=== PATIENT | female | born 1960 | race African-American/Black ===

== ENCOUNTER 2019-03-30 09:26 | Emergency (ER) | payer MEDICARE, OTHER ==
[~2019-03-30] VITALS: Ht 160 cm; Wt 64.0 kg
[~2019-03-30 09:26] MED LIST: LEVE750T35; LEVO125T
[2019-03-30 10:20] LABS: EOSINOPHILS % 0.6 % (0.0-5.0); HEMOGLOBIN. 14.6 g/dL (12.0-16.0); LYMPHOCYTES % 21.8 % (20.0-50.0); MEAN CORPUSCULAR HEMOGLOBIN 29.7 pg (28.0-32.0); MEAN CORPUSCULAR VOLUME 87.8 fL (81.0-99.0); MEAN PLATELET VOLUME 8.7 fl (7.4-10.4); MONOCYTES % 4.7 % (2.0-8.0); NEUTROPHILS % 71.9 % (40.0-76.0); PLATELET 355 x1000/uL (130-400); RED CELL DISTRIBUTION WIDTH 13.2 % (11.6-14.6)
[2019-03-30 10:27] LABS: CHLORIDE 106 mEq/L (98-107)
[2019-03-30] MEDS: POTASSIUM CHLORIDE 20MEQ TABLET SR PO ONE (11:12)
[2019-03-30] MEDS: ALPRAZOLAM 0.5 MG TABLET PO ONE (11:12)
[2019-03-30 14:22] VITALS: BP 140/80
== END 2019-03-30 14:24 | disposition home or self-care (01) ==
LOC: ER 09:26
DX: F41.9 Anxiety disorder, unspecified (principal); F43.0 Acute stress reaction; F32.9 Major depressive disorder, single episode, unspecified; E87.6 Hypokalemia; F17.200 Nicotine dependence, unspecified, uncomplicated; Z98.890 Other specified postprocedural states; Z79.899 Other long term (current) drug therapy
CPT/HCPCS: 36415; 80048; 99284

== ENCOUNTER 2020-01-21 19:26 | Inpatient (IN) | payer OTHER ==
[~2020-01-21] VITALS: Ht 160 cm; Wt 56.2 kg
[2020-01-21] MEDS ORDERED: SODIUM CHLORIDE 0.9% 1,000 ML IV ONE (19:46)
[2020-01-21] MEDS ORDERED: CEFTRIAXONE 1 G PREMIX 50 ML IV ONE (20:00)
[2020-01-21 21:18] LABS: BASOPHILS % 0.7 % (0.0-2.0); HEMATOCRIT. 35.2 % (36.0-48.0); HEMOGLOBIN. 12.3 g/dL (12.0-16.0); LYMPHOCYTES % 37.3 % (20.0-50.0); MEAN CORPUSCULAR HEMOGLOBIN 31.8 pg (28.0-32.0); MEAN PLATELET VOLUME 8.2 fl (7.4-10.4); MONOCYTES % 8.4 % (2.0-8.0); NEUTROPHILS % 51.6 % (40.0-76.0); PLATELET 273 x1000/uL (130-400); RED BLOOD CELL COUNT 3.87 mill/uL (4.2-5.4); RED CELL DISTRIBUTION WIDTH 13.7 % (11.6-14.6)
[2020-01-21 21:27] LABS: CHLORIDE 111 mEq/L (98-107)
[2020-01-21 21:33] LABS: ETHANOL BLOOD < 10 mg/dL
[2020-01-21 21:36] LABS: LDL CHOLESTEROL 110 mg/dL (5-100); PROTHROMBIN TIME 10.6 sec (9.6-11.0)
[2020-01-21 22:48] LABS: CLARITY URINE CLEAR (CLEAR); COLOR URINE YELLOW (YELLOW); KETONES URINE NEGATIVE (NEGATIVE); LEUKOCYTE ESTERASE URINE 1+ (NEGATIVE); NITRITE URINE NEGATIVE (NEGATIVE); OCCULT BLOOD URINE NEGATIVE (NEGATIVE); PH URINE 5.5 (4.5-8.0); PROTEIN URINE NEGATIVE (NEGATIVE); SPECIFIC GRAVITY URINE 1.014 (1.005-1.030); UROBILINOGEN URINE 0.2 E.U./dL (0.2-1.0)
[2020-01-21 22:58] LABS: *AMPHETAMINES SCREEN URINE NEGATIVE (NEGATIVE); *BARBITURATES SCREEN URINE NEGATIVE (NEGATIVE)
[2020-01-21 22:59] LABS: *BENZODIAZEPINES SCREEN URINE PRESUMTIVE POSITIVE (NEGATIVE); *COCAINE SCREEN URINE NEGATIVE (NEGATIVE); CANNABINOID URINE SCREEN NEGATIVE (NEGATIVE); METHADONE URINE SCREEN NEGATIVE (NEGATIVE); OPIATES URINE SCREEN NEGATIVE (NEGATIVE); PHENCYCLIDINE URINE SCREEN NEGATIVE (NEGATIVE)
[2020-01-21] MEDS ORDERED: ONDANSETRON HCL 4MG/2ML INJ IV ONE (23:15)
[2020-01-21] MEDS ORDERED: MORPHINE SULFATE 4 MG/ML CPJ (NOT FOR IM USE) IV ONE (23:15)
[2020-01-22] MEDS ORDERED: IOHEXOL-12MG/ML 500 ML ORAL.CONC PO ONE (04:03)
[2020-01-22] MEDS ORDERED: IOHEXOL-300 100 ML BOTTLE ONE (04:04)
[2020-01-22 05:15] VITALS: BP_SYST 115; BP_SYST 162; BP_DIAS 91
[2020-01-22] MEDS ORDERED: POTASSIUM CHLORIDE 20MEQ TABLET SR PO NR ×2 (06:00→13:00)
[2020-01-22] MEDS ORDERED: MORPHINE SULFATE 2 MG/ML CPJ (NOT FOR IM USE) IV PRN (06:00)
[2020-01-22] MEDS ORDERED: CLONIDINE 0.1MG TABLET PO PRN (06:00)
[2020-01-22 08:00] VITALS: BP 152/87
[2020-01-22 10:58] LABS: BASOPHILS % 1.3 % (0.0-2.0); HEMATOCRIT. 39.7 % (36.0-48.0); HEMOGLOBIN. 13.5 g/dL (12.0-16.0); LYMPHOCYTES % 33.1 % (20.0-50.0); MEAN CORPUSCULAR HEMOGLOBIN 31.1 pg (28.0-32.0); MEAN CORPUSCULAR VOLUME 91.3 fL (81.0-99.0); MEAN PLATELET VOLUME 8.8 fl (7.4-10.4); MONOCYTES % 11.1 % (2.0-8.0); NEUTROPHILS % 50.5 % (40.0-76.0); PLATELET 249 x1000/uL (130-400); RED BLOOD CELL COUNT 4.35 mill/uL (4.2-5.4); RED CELL DISTRIBUTION WIDTH 13.6 % (11.6-14.6)
[2020-01-22 11:23] LABS: CHLORIDE 110 mEq/L (98-107)
[2020-01-22 12:00] VITALS: BP 110/68
[2020-01-22] MEDS: LEVOTHYROXINE SODIUM 88MCG TABLET PO SCH (12:58)
[2020-01-22] MEDS ORDERED: ONDANSETRON HCL 4MG/2ML INJ IV PRN (13:15)
[2020-01-22 13:40] LABS: HEPATITIS B SURFACE ANTIGEN NEGATIVE
[2020-01-22 14:07] LABS: HEPATITIS A AB IGM NEGATIVE (NEGATIVE)
[2020-01-22] MEDS ORDERED: TOPI50TA MT (15:49)
[2020-01-22] MEDS ORDERED: DONE23TA3 MT (15:51)
[2020-01-22] MEDS ORDERED: ESCI5SOL2 MT (15:51)
[2020-01-22 16:30] VITALS: BP 142/58
[2020-01-22] MEDS: MORPHINE SULFATE 2 MG/ML CPJ (NOT FOR IM USE) IV PRN ×2 (16:46→23:02)
[2020-01-22 16:52] LABS: CREATINE KINASE 60 IU/L (26-192)
[2020-01-22 20:00] VITALS: BP 134/62
[2020-01-22] MEDS: LEVETIRACETAM 250MG TABLET PO SCH (20:18)
[2020-01-23] VITALS: BP 122/59
[2020-01-23 04:00] VITALS: BP 122/67
[2020-01-23] MEDS: MORPHINE SULFATE 2 MG/ML CPJ (NOT FOR IM USE) IV PRN ×4 (06:24→21:56)
[2020-01-23 06:31] LABS: BASOPHILS % 0.9 % (0.0-2.0); EOSINOPHILS % 3.7 % (0.0-5.0); HEMATOCRIT. 36.5 % (36.0-48.0); HEMOGLOBIN. 12.8 g/dL (12.0-16.0); LYMPHOCYTES % 30.9 % (20.0-50.0); MEAN CORPUSCULAR HEMOGLOBIN 31.7 pg (28.0-32.0); MEAN CORPUSCULAR VOLUME 90.6 fL (81.0-99.0); MONOCYTES % 9.5 % (2.0-8.0); PLATELET 255 x1000/uL (130-400); RED BLOOD CELL COUNT 4.03 mill/uL (4.2-5.4); RED CELL DISTRIBUTION WIDTH 13.4 % (11.6-14.6)
[2020-01-23] MEDS: LEVOTHYROXINE SODIUM 88MCG TABLET PO SCH (06:42)
[2020-01-23 07:18] LABS: CHLORIDE 109 mEq/L (98-107)
[2020-01-23 08:00] VITALS: BP 108/55
[2020-01-23] MEDS: LEVETIRACETAM 250MG TABLET PO SCH ×2 (08:29→21:56)
[2020-01-23 11:43] VITALS: BP 139/70
[2020-01-23] MEDS ORDERED: ASPIRIN 81MG TABLET PO SCH (15:00)
[2020-01-23 16:00] VITALS: BP 141/78
[2020-01-23 20:00] VITALS: BP 160/54
[2020-01-23] MEDS: LORAZEPAM 0.5MG TABLET PO PRN (20:43)
[2020-01-24 01:04] VITALS: BP 160/81
[2020-01-24 04:00] VITALS: BP 149/47
[2020-01-24 04:07] LABS: HIV SCREEN 4G Non Reactive (Non Reactive)
[2020-01-24] MEDS: MORPHINE SULFATE 2 MG/ML CPJ (NOT FOR IM USE) IV PRN ×3 (04:51→16:59)
[2020-01-24] MEDS: LEVOTHYROXINE SODIUM 88MCG TABLET PO SCH (06:36)
[2020-01-24] MEDS: LORAZEPAM 0.5MG TABLET PO PRN (07:46)
[2020-01-24 08:00] VITALS: BP 148/86
[2020-01-24] MEDS ORDERED: FOLIC ACID 1MG TABLET PO SCH (09:00)
[2020-01-24] MEDS ORDERED: CLOPIDOGREL 75MG TABLET PO SCH (09:00)
[2020-01-24] MEDS ORDERED: THIAMINE HCL 100MG TABLET PO SCH (09:00)
[2020-01-24] MEDS ORDERED: MULTIVITAMINS,THER W-MINERALS TABLET PO SCH (09:00)
[2020-01-24] MEDS: LEVETIRACETAM 250MG TABLET PO SCH (09:38)
[2020-01-24 12:00] VITALS: BP 156/83
[2020-01-24] MEDS ORDERED: THIA100T72 PO (12:52)
[2020-01-24] MEDS ORDERED: FOLI-43 PO (12:52)
[2020-01-24] MEDS ORDERED: CLOP75TA15 PO (12:52)
[2020-01-24] MEDS ORDERED: MULT-1146 MT (12:52)
[2020-01-24 16:00] VITALS: BP 146/72
[2020-01-24 17:04] VITALS: BP 146/72
== END 2020-01-24 18:10 | disposition home or self-care (01) | DRG 442 ==
LOC: ER 19:58 → MICUSO 23:55 → EDBEDREQ 23:58 → EDBEDREQTM 23:58 → 5WST 01-22 01:51 → MICUSO 01-22 01:56 → 7WST 01-22 03:49 → 5WST 01-23 11:15
PROVIDERS: ADMIT Internal Medicine; ATTEND Internal Medicine
DX: B17.9 Acute viral hepatitis, unspecified (principal); G45.9 Transient cerebral ischemic attack, unspecified; K86.0 Alcohol-induced chronic pancreatitis; I50.32 Chronic diastolic (congestive) heart failure; N39.0 Urinary tract infection, site not specified; I11.0 Hypertensive heart disease with heart failure; R29.810 Facial weakness; E11.9 Type 2 diabetes mellitus without complications; E03.9 Hypothyroidism, unspecified; G40.909 Epilepsy, unspecified, not intractable, without status epilepticus; K83.8 Other specified diseases of biliary tract; R47.1 Dysarthria and anarthria; D72.810 Lymphocytopenia; D72.821 Monocytosis (symptomatic); K76.9 Liver disease, unspecified; E87.6 Hypokalemia; Z96.659 Presence of unspecified artificial knee joint; N28.1 Cyst of kidney, acquired; E78.00 Pure hypercholesterolemia, unspecified; E78.5 Hyperlipidemia, unspecified; F41.1 Generalized anxiety disorder; Z90.49 Acquired absence of other specified parts of digestive tract; Z79.899 Other long term (current) drug therapy; Z03.818 Encounter for observation for suspected exposure to other biological agents ruled out; R82.71 Bacteriuria
CPT/HCPCS: 36415; 70544; 70551; 71045; 74177; 74181; 76700; 80048; 80053; 80061; 80076; 80305; 80320; 81003; 82550; 82962; 83036; 83605; 83615; 83721; 84484; 85025; 86705; 86709; 86803; 86850; 86900; 87077; 87186; 87340; 87389; 93005; 93306; 93880; 96365; 97162; 97535; 99291; J0696; J2270; J2405; J7030; Q9967; G0480; U0003-CS

== ENCOUNTER 2020-09-20 15:58 | Inpatient (IN) | payer OTHER ==
[~2020-09-20] VITALS: Ht 167.6 cm; Wt 63.5 kg
[~2020-09-20 15:58] MED LIST changes: +CLOP75TA15 PO; +DONE23TA3 MT; +ESCI5SOL2 MT; +FOLI-43 PO; +MULT-1146 MT; +THIA100T72 PO; +TOPI50TA MT
[2020-09-20] MEDS ORDERED: VANCOMYCIN 1 G PREMIX 200 ML IV ONE (16:30)
[2020-09-20] MEDS ORDERED: MEROPENEM 1,000 MG in SODIUM CHLORIDE 0.9% 100 ML IV ONE (16:30)
[2020-09-20] MEDS ORDERED: SODIUM CHLORIDE 0.9% 1000ML BAG (SEPSIS BOLUS) IV ONE (16:30)
[2020-09-20 17:40] LABS: BASOPHILS % 0.3 % (0.0-2.0); EOSINOPHILS % 0.1 % (0.0-5.0); HEMATOCRIT. 37.2 % (36.0-48.0); HEMOGLOBIN. 12.5 g/dL (12.0-16.0); LYMPHOCYTES % 11.1 % (20.0-50.0); MEAN CORPUSCULAR HEMOGLOBIN 29.6 pg (28.0-32.0); MEAN CORPUSCULAR VOLUME 87.7 fL (81.0-99.0); MEAN PLATELET VOLUME 8.1 fl (7.4-10.4); MONOCYTES % 5.9 % (2.0-8.0); NEUTROPHILS % 82.6 % (40.0-76.0); PLATELET 325 x1000/uL (130-400); RED BLOOD CELL COUNT 4.24 mill/uL (4.2-5.4); RED CELL DISTRIBUTION WIDTH 13.4 % (11.6-14.6)
[2020-09-20] MEDS ORDERED: MORPHINE SULFATE 4 MG/ML CPJ (NOT FOR IM USE) IV NR (18:00)
[2020-09-20 18:02] LABS: CHLORIDE 107 mEq/L (98-107)
[2020-09-20 19:13] LABS: INR 1.1; PROTHROMBIN TIME 11.4 sec (9.6-11.0)
[2020-09-20 22:20] VITALS: BP 119/55
[2020-09-20] MEDS ORDERED: IOHEXOL-300 100 ML BOTTLE ONE (22:57)
[2020-09-20] MEDS ORDERED: ACETAMINOPHEN 325MG TABLET PO PRN (23:30)
[2020-09-21] VITALS (7 sets, daily range): BP systolic 91–116; BP diastolic 45–61
[2020-09-21] MEDS: HYDROCODONE/ACETAMINOPHEN 5/325MG TABLET PO PRN ×4 (00:53→18:39)
[2020-09-21] MEDS: SODIUM CHLORIDE 0.9% 1,000 ML IV SCH ×2 (00:55→13:09)
[2020-09-21] MEDS: PIPERACILLIN/TAZOBACTAM 2.25 G in DEXTROSE 5% WATER 50 ML IV SCH ×3 (05:11→18:37)
[2020-09-21 06:42] LABS: BASOPHILS % 0.3 % (0.0-2.0); EOSINOPHILS % 0.3 % (0.0-5.0); HEMATOCRIT. 32.3 % (36.0-48.0); HEMOGLOBIN. 10.9 g/dL (12.0-16.0); LYMPHOCYTES % 12.1 % (20.0-50.0); MEAN CORPUSCULAR HEMOGLOBIN 29.6 pg (28.0-32.0); MEAN CORPUSCULAR VOLUME 87.6 fL (81.0-99.0); MEAN PLATELET VOLUME 7.9 fl (7.4-10.4); MONOCYTES % 4.8 % (2.0-8.0); NEUTROPHILS % 82.5 % (40.0-76.0); PLATELET 272 x1000/uL (130-400); RED BLOOD CELL COUNT 3.68 mill/uL (4.2-5.4); RED CELL DISTRIBUTION WIDTH 13.1 % (11.6-14.6)
[2020-09-21 06:45] LABS: CHLORIDE 104 mEq/L (98-107)
[2020-09-21 07:01] LABS: CREATINE KINASE 79 IU/L (26-192)
[2020-09-21 07:04] LABS: CREATINE KINASE MB FRACTION 1.2 ng/mL (0.5-3.6)
[2020-09-21] MEDS: VANCOMYCIN 1 G PREMIX 200 ML IV SCH (09:39)
[2020-09-21] MEDS: HEPARIN 5000 UNITS/ML VIAL SUBCUT SCH (09:40)
[2020-09-21] MEDS: LEVOTHYROXINE SODIUM 125MCG TABLET PO SCH (14:30)
[2020-09-21 16:13] LABS: CREATINE KINASE 80 IU/L (26-192)
[2020-09-21] MEDS: FOLIC ACID 1MG TABLET PO SCH (18:37)
[2020-09-21] MEDS: LEVETIRACETAM 500MG/5ML CUP PO SCH (18:37)
[2020-09-21] MEDS: CLOPIDOGREL 75MG TABLET PO SCH (18:38)
[2020-09-21] MEDS ORDERED: POTASSIUM CHLORIDE INJ 40 MEQ in DEXT 5% WATER 250 ML IV NR (20:30)
[2020-09-22] VITALS: BP 110/58
[2020-09-22] MEDS: HYDROCODONE/ACETAMINOPHEN 5/325MG TABLET PO PRN ×3 (00:23→20:49)
[2020-09-22] MEDS: PIPERACILLIN/TAZOBACTAM 2.25 G in DEXTROSE 5% WATER 50 ML IV SCH ×4 (00:24→18:00)
[2020-09-22] MEDS: HEPARIN 5000 UNITS/ML VIAL SUBCUT SCH ×3 (00:24→20:55)
[2020-09-22] MEDS: SODIUM CHLORIDE 0.9% 1,000 ML IV SCH ×2 (00:32→13:00)
[2020-09-22 01:21] LABS: CREATINE KINASE 76 IU/L (26-192)
[2020-09-22 01:22] LABS: CREATINE KINASE MB FRACTION < 1.0 ng/mL (0.5-3.6)
[2020-09-22 04:00] VITALS: BP 116/68
[2020-09-22 05:55] LABS: CHLORIDE 106 mEq/L (98-107)
[2020-09-22 06:01] LABS: BASOPHILS % 0.5 % (0.0-2.0); EOSINOPHILS % 1.7 % (0.0-5.0); HEMATOCRIT. 30.9 % (36.0-48.0); HEMOGLOBIN. 10.5 g/dL (12.0-16.0); LYMPHOCYTES % 17.4 % (20.0-50.0); MEAN CORPUSCULAR HEMOGLOBIN 29.8 pg (28.0-32.0); MEAN CORPUSCULAR VOLUME 87.7 fL (81.0-99.0); MONOCYTES % 5.8 % (2.0-8.0); NEUTROPHILS % 74.6 % (40.0-76.0); PLATELET 270 x1000/uL (130-400); RED BLOOD CELL COUNT 3.53 mill/uL (4.2-5.4); RED CELL DISTRIBUTION WIDTH 13.5 % (11.6-14.6)
[2020-09-22] MEDS: LEVOTHYROXINE SODIUM 125MCG TABLET PO SCH (07:00)
[2020-09-22 08:00] VITALS: BP 128/66
[2020-09-22] MEDS: VANCOMYCIN 1 G PREMIX 200 ML IV SCH (08:35)
[2020-09-22] MEDS: LEVETIRACETAM 500MG/5ML CUP PO SCH (08:39)
[2020-09-22] MEDS: THIAMINE HCL 100MG TABLET PO SCH (08:40)
[2020-09-22] MEDS: MULTIVITAMINS,THER W-MINERALS TABLET PO SCH (08:41)
[2020-09-22] MEDS: CLOPIDOGREL 75MG TABLET PO SCH (08:48)
[2020-09-22] MEDS: FOLIC ACID 1MG TABLET PO SCH (08:48)
[2020-09-22 12:00] VITALS: BP 151/69
[2020-09-22 16:00] VITALS: BP 120/62
[2020-09-22] MEDS: LEVETIRACETAM 250MG TABLET PO SCH (17:40)
[2020-09-22 20:39] VITALS: BP 111/58
[2020-09-23] VITALS: BP 110/57
[2020-09-23] MEDS: PIPERACILLIN/TAZOBACTAM 2.25 G in DEXTROSE 5% WATER 50 ML IV SCH ×2 (01:03→06:00)
[2020-09-23] MEDS: SODIUM CHLORIDE 0.9% 1,000 ML IV SCH (01:03)
[2020-09-23 04:40] VITALS: BP 110/54
[2020-09-23] MEDS: LEVOTHYROXINE SODIUM 125MCG TABLET PO SCH (06:51)
[2020-09-23 06:56] LABS: BASOPHILS % 0.8 % (0.0-2.0); HEMATOCRIT. 34.2 % (36.0-48.0); HEMOGLOBIN. 11.5 g/dL (12.0-16.0); LYMPHOCYTES % 27.9 % (20.0-50.0); MEAN CORPUSCULAR HEMOGLOBIN 29.5 pg (28.0-32.0); MEAN CORPUSCULAR VOLUME 87.8 fL (81.0-99.0); MEAN PLATELET VOLUME 7.8 fl (7.4-10.4); MONOCYTES % 7.6 % (2.0-8.0); NEUTROPHILS % 58.7 % (40.0-76.0); PLATELET 302 x1000/uL (130-400); RED CELL DISTRIBUTION WIDTH 13.3 % (11.6-14.6)
[2020-09-23 07:58] LABS: CHLORIDE 106 mEq/L (98-107)
[2020-09-23 08:00] VITALS: BP 133/68
[2020-09-23] MEDS: LEVETIRACETAM 250MG TABLET PO SCH (08:25)
[2020-09-23] MEDS ORDERED: MORPHINE SULFATE 2 MG/ML CPJ (NOT FOR IM USE) IV PRN ×2 (08:30→09:00)
[2020-09-23] MEDS: MULTIVITAMINS,THER W-MINERALS TABLET PO SCH (08:50)
[2020-09-23] MEDS: CLOPIDOGREL 75MG TABLET PO SCH (08:50)
[2020-09-23] MEDS: FOLIC ACID 1MG TABLET PO SCH (08:50)
[2020-09-23] MEDS: THIAMINE HCL 100MG TABLET PO SCH (08:50)
[2020-09-23] MEDS: HEPARIN 5000 UNITS/ML VIAL SUBCUT SCH (08:51)
[2020-09-23] MEDS: VANCOMYCIN 1 G PREMIX 200 ML IV SCH (08:51)
[2020-09-23] MEDS ORDERED: HYDR-4001 MT (10:48)
[2020-09-23] MEDS ORDERED: OMEP40CA12 MT (10:48)
[2020-09-23 11:21] VITALS: BP 134/92
[2020-09-23 12:00] VITALS: BP 149/79
[2020-09-23] MEDS ORDERED: VANCOMYCIN 750 MG PREMIX 150 ML IV SCH (16:00)
== END 2020-09-23 12:34 | disposition home or self-care (01) | DRG 641 ==
LOC: ER 15:58 → 6WST 19:23 → ENRESERV 21:17
PROVIDERS: ADMIT Internal Medicine; ATTEND Internal Medicine
DX: E86.0 Dehydration (principal); E03.9 Hypothyroidism, unspecified; E11.9 Type 2 diabetes mellitus without complications; Z96.659 Presence of unspecified artificial knee joint; R74.01 Elevation of levels of liver transaminase levels; R56.9 Unspecified convulsions; Z79.899 Other long term (current) drug therapy; Z86.73 Personal history of transient ischemic attack (TIA), and cerebral infarction without residual deficits; Z90.49 Acquired absence of other specified parts of digestive tract
CPT/HCPCS: 36415; 71045; 74174; 80048; 80053; 80202; 82550; 82553; 82962; 83605; 83735; 84145; 84443; 84484; 85025; 85379; 87070; 87430; 93005; 99291; J1644; J2185; J2270; J2543; J3370; J3480; J7030; J7050; J7060; Q9967

== ENCOUNTER 2021-01-14 11:56 | Emergency (ER) | payer OTHER ==
[~2021-01-14] VITALS: Ht 172.7 cm; Wt 75.0 kg
[~2021-01-14 11:56] MED LIST changes: -DONE23TA3 MT; -ESCI5SOL2 MT; +HYDR-4001 MT; +OMEP40CA12 MT; -TOPI50TA MT
[2021-01-14] MEDS ORDERED: ACETAMINOPHEN 325MG TABLET PO ONE (16:15)
[2021-01-14 17:04] LABS: BASOPHILS % 0.8 % (0.0-2.0); EOSINOPHILS % 0.1 % (0.0-5.0); HEMATOCRIT. 39.3 % (36.0-48.0); LYMPHOCYTES % 25.8 % (20.0-50.0); MEAN CORPUSCULAR HEMOGLOBIN 30.9 pg (28.0-32.0); MEAN CORPUSCULAR VOLUME 86.9 fL (81.0-99.0); MEAN PLATELET VOLUME 8.5 fl (7.4-10.4); MONOCYTES % 8.1 % (2.0-8.0); NEUTROPHILS % 65.2 % (40.0-76.0); PLATELET 343 x1000/uL (130-400); RED BLOOD CELL COUNT 4.52 mill/uL (4.2-5.4); RED CELL DISTRIBUTION WIDTH 13.5 % (11.6-14.6)
[2021-01-14 17:11] LABS: CHLORIDE 99 mEq/L (98-107)
[2021-01-14 17:54] LABS: CLARITY URINE CLEAR (CLEAR); COLOR URINE YELLOW (YELLOW); KETONES URINE 2+ (NEGATIVE); LEUKOCYTE ESTERASE URINE 1+ (NEGATIVE); NITRITE URINE NEGATIVE (NEGATIVE); OCCULT BLOOD URINE NEGATIVE (NEGATIVE); PH URINE 5.5 (4.5-8.0); PROTEIN URINE 1+ (NEGATIVE); SPECIFIC GRAVITY URINE 1.019 (1.005-1.030); UROBILINOGEN URINE 0.2 E.U./dL (0.2-1.0)
[2021-01-14] MEDS ORDERED: NAPR-681 MT (18:48)
[2021-01-14] MEDS ORDERED: KETOROLAC 15MG/ML VIAL IV ONE (19:00)
[2021-01-14 19:22] VITALS: BP 164/91
== END 2021-01-14 19:40 | disposition home or self-care (01) ==
LOC: ER 11:56
DX: F41.9 Anxiety disorder, unspecified (principal); F44.5 Conversion disorder with seizures or convulsions; E11.9 Type 2 diabetes mellitus without complications; Z86.73 Personal history of transient ischemic attack (TIA), and cerebral infarction without residual deficits; Z96.659 Presence of unspecified artificial knee joint
CPT/HCPCS: 36415; 80053; 81003; 83735; 84443; 85025; 93005; 99284; J1885